=== PATIENT | female | born 1945 | race Caucasian/White ===

== ENCOUNTER 2017-08-04 23:18 | Emergency (ER) | payer MEDICARE, MEDICAID ==
[~2017-08-04] VITALS: Ht 152.4 cm; Wt 77.0 kg
[~2017-08-04 23:18] MED LIST: ASPI-1079 PO; ATEN-42; LEVO112T2; LEVO500T2 PO; LISI1TAB9; METR500T PO; OMEP20CA4; OMEP20CA4 PO
[2017-08-04] MEDS ORDERED: LORAZEPAM 0.5MG TABLET PO ONE (23:45)
[2017-08-05 00:16] LABS: BASOPHILS % 0.6 % (0.0-2.0); EOSINOPHILS % 1.8 % (0.0-5.0); HEMATOCRIT. 42.2 % (36.0-48.0); HEMOGLOBIN. 14.6 g/dL (12.0-16.0); LYMPHOCYTES % 25.8 % (20.0-50.0); MEAN CORPUSCULAR HEMOGLOBIN 32.3 pg (28.0-32.0); MEAN CORPUSCULAR VOLUME 93.7 fL (81.0-99.0); MEAN PLATELET VOLUME 8.6 fl (7.4-10.4); NEUTROPHILS % 63.8 % (40.0-76.0); PLATELET 238 x1000/uL (130-400); RED CELL DISTRIBUTION WIDTH 13.3 % (11.6-14.6)
[2017-08-05 00:32] LABS: CARBON DIOXIDE 28 mEq/L (21-32); CHLORIDE 100 mEq/L (98-107); TROPONIN I < 0.02 ng/mL (0.00-0.04)
[2017-08-05 02:33] VITALS: BP 143/67
== END 2017-08-05 02:45 | disposition home or self-care (01) ==
LOC: ER 23:18
DX: R55 Syncope and collapse (principal); I11.9 Hypertensive heart disease without heart failure; F43.29 Adjustment disorder with other symptoms; E11.65 Type 2 diabetes mellitus with hyperglycemia; D72.829 Elevated white blood cell count, unspecified; R00.0 Tachycardia, unspecified; E05.90 Thyrotoxicosis, unspecified without thyrotoxic crisis or storm; Z88.0 Allergy status to penicillin; Z88.6 Allergy status to analgesic agent
CPT/HCPCS: 36415; 71010; 80048; 84484; 85025; 93005; 99285